=== PATIENT | female | born 2000 | race Caucasian/White ===

== ENCOUNTER 2018-08-16 16:28 | Emergency (ER) | payer BC ==
[~2018-08-16] VITALS: Ht 162.6 cm; Wt 127.3 kg
[2018-08-16 16:38] VITALS: BP 140/79; TEMP 98
[2018-08-16] MEDS ORDERED: RT ADVAIR HFA 1112 G IH (16:46)
[2018-08-16] MEDS ORDERED: NAPROSYN500 MG PO (16:48)
[2018-08-16 17:35] VITALS: PULSE 65
== END 2018-08-16 17:50 | disposition home or self-care (01) ==
LOC: COL.ER 16:28
DX: S90.02XA Contusion of left ankle, initial encounter (principal); Z87.891 Personal history of nicotine dependence; W10.9XXA Fall (on) (from) unspecified stairs and steps, initial encounter; X50.1XXA Overexertion from prolonged static or awkward postures, initial encounter; Y92.009 Unspecified place in unspecified non-institutional (private) residence as the place of occurrence of the external cause